=== PATIENT | male | born 1955 | race Caucasian/White ===

== ENCOUNTER → 2017-03-08 | Outpatient (CLI) | payer OTHER ==
[~2017-03-08] MED LIST: ACC10 PO; AMLO-110 PO; ASPEC325 PO; CEPH500C PO; CLR10 PO; SYN150 PO
[2017-03-08 09:24] LABS: BASO % 0.6 %; BASO ABS # 0.04 K/uL (0-0.2); COMPLETE YES; EOS % 3.1 %; LYMPH % 26.5 %; LYMPH ABS # 1.86 K/uL (1.2-3.4); MEAN CELL VOLUME 90.7 fL (80-100); MEAN CORPUSCULAR HEMOGLOBIN 33.2 pg (25-34); MEAN CORPUSCULAR HGB CONC 36.6 g/dl (32-36); MEAN PLATELET VOLUME 9.2 fL (7.4-10.4); MONO % 9.8 %; PLATELET COUNT 262 K/uL (130-400); RED BLOOD COUNT 4.85 M/uL (4.7-6.1); WHITE BLOOD COUNT 7.01 K/uL (4.8-10.8)
[2017-03-08 09:37] LABS: ALT/SGPT 29 U/L (12-78); BLOOD UREA NITROGEN 12 mg/dl (7-18); BUN/CREATININE RATIO 10.9 (10-20); CALCIUM 8.9 mg/dl (8.5-10.1); CARBON DIOXIDE 26 mmol/L (21-32); CHLORIDE 105 mmol/L (98-107); CHOLESTEROL 193 mg/dl (0-200); CHOLESTEROL/HDL RATIO 3.2; CREATININE 1.11 mg/dl (0.60-1.40); GLUCOSE 98 mg/dl (70-99); HDL CHOLESTEROL 61 mg/dl; LDL CHOLESTEROL CALCULATED 115 mg/dl; POTASSIUM 3.6 mmol/L (3.5-5.1); SODIUM 139 mmol/L (136-145); TRIGLYCERIDES 84 mg/dl (0-150); VERY LOW DENSITY LIPOPROT CALC 17 mg/dl
[2017-03-08 09:47] LABS: ALB/GLOB RATIO 1.3 (0.9-2); ALKALINE PHOSPHATASE 102 U/L (45-117); AST/SGOT 16 U/L (15-37); PROSTATE SPECIFIC ANTIGEN 0.986 ng/ml (0.000-4.000); URIC ACID 6.9 mg/dl (2.6-7.2)
== END | disposition home or self-care (01) ==
LOC: C.LAB 07:16
PROVIDERS: ATTEND Internal Medicine
DX: E04.1 Nontoxic single thyroid nodule (principal); I10 Essential (primary) hypertension; E03.9 Hypothyroidism, unspecified; G47.30 Sleep apnea, unspecified; M10.9 Gout, unspecified; Z13.220 Encounter for screening for lipoid disorders; Z12.5 Encounter for screening for malignant neoplasm of prostate